=== PATIENT | female | born 1995 | race Two or more races ===

== ENCOUNTER 2021-03-22 15:36 | Outpatient (CLI) | payer OTHER | END 2021-03-22 16:32 | disposition home or self-care (01) | LOC: PRENATAL 15:36 | PROVIDERS: ATTEND Obstetrics & Gynecology Maternal & Fetal Medicine | DX: O35.0XX1 Maternal care for (suspected) central nervous system malformation in fetus, fetus 1 (principal); O35.3XX1 Maternal care for (suspected) damage to fetus from viral disease in mother, fetus 1; O98.512 Other viral diseases complicating pregnancy, second trimester; Z36.89 Encounter for other specified antenatal screening; Z3A.25 25 weeks gestation of pregnancy ==

== ENCOUNTER 2021-06-18 12:50 | Inpatient (IN) | payer OTHER ==
[~2021-06-18] VITALS: Ht 157.5 cm; Wt 68.5 kg
[2021-06-21] MEDS ORDERED: DOCUSATE SODIU100 MG PO (08:16)
== END 2021-06-21 11:37 | disposition home or self-care (01) | DRG 768 ==
LOC: LDR 12:50 → OB/GYN 06-19 11:02
PROVIDERS: ADMIT Obstetrics & Gynecology; ATTEND Obstetrics & Gynecology
PROC: 10E0XZZ Delivery of Products of Conception, External Approach (ICD-10-PCS; principal; 2021-06-18)
PROC: 0DQR0ZZ Repair Anal Sphincter, Open Approach (ICD-10-PCS; 2021-06-18)
PROC: 4A1HXCZ Monitoring of Products of Conception, Cardiac Rate, External Approach (ICD-10-PCS; 2021-06-18)
DX: O70.21 Third degree perineal laceration during delivery, IIIa (principal); O14.03 Mild to moderate pre-eclampsia, third trimester; Z37.0 Single live birth; Z3A.38 38 weeks gestation of pregnancy

== ENCOUNTER 2022-07-01 12:59 | Outpatient (CLI) | payer OTHER ==
[~2022-07-01 12:59] MED LIST: DOCUSATE SODIU100 MG PO
== END 2022-07-01 14:00 | disposition home or self-care (01) ==
LOC: PRENATAL 12:59
PROVIDERS: ATTEND Obstetrics & Gynecology Maternal & Fetal Medicine
DX: O35.9XX0 Maternal care for (suspected) fetal abnormality and damage, unspecified, not applicable or unspecified (principal); O09.819 Supervision of pregnancy resulting from assisted reproductive technology, unspecified trimester; Z3A.21 21 weeks gestation of pregnancy

== ENCOUNTER 2022-09-16 14:22 | Outpatient (CLI) | payer OTHER | END 2022-09-16 16:00 | disposition home or self-care (01) | LOC: PRENATAL 14:22 | PROVIDERS: ATTEND Obstetrics & Gynecology Maternal & Fetal Medicine | DX: O26.849 Uterine size-date discrepancy, unspecified trimester (principal); O36.8199 Decreased fetal movements, unspecified trimester, other fetus; O35.9XX0 Maternal care for (suspected) fetal abnormality and damage, unspecified, not applicable or unspecified; Z3A.32 32 weeks gestation of pregnancy ==

== ENCOUNTER 2022-10-28 01:40 | Inpatient (IN) | payer OTHER ==
[~2022-10-28] VITALS: Ht 157.5 cm; Wt 4.1 kg
[2022-10-28] MEDS ORDERED: PRENATAL TABLE1 EAC1 PO (02:14)
[2022-10-28] MEDS ORDERED: VAZALORE81 MG PO (02:15)
[2022-10-31] MEDS ORDERED: ACETAMINOPHEN-1 EAC2 PO (13:50)
[2022-10-31] MEDS ORDERED: IBU600 MG PO (13:51)
[2022-10-31] MEDS ORDERED: SIMETHICONE125 M1 PO (13:52)
== END 2022-10-31 14:28 | disposition home or self-care (01) | DRG 788 ==
LOC: OB/GYN 01:40 → LDR 01:40 → O/R 01:40 → OB/GYN 14:40
PROVIDERS: ADMIT Student in an Organized Health Care Education/Training Program; ATTEND Student in an Organized Health Care Education/Training Program
PROC: 4A1HXCZ Monitoring of Products of Conception, Cardiac Rate, External Approach (ICD-10-PCS; 2022-10-28)
PROC: 10D00Z1 Extraction of Products of Conception, Low, Open Approach (ICD-10-PCS; principal; 2022-10-28 15:00)
DX: O36.63X0 Maternal care for excessive fetal growth, third trimester, not applicable or unspecified (principal); Z3A.38 38 weeks gestation of pregnancy; Z37.0 Single live birth; Z20.822 Contact with and (suspected) exposure to COVID-19